=== PATIENT | male | born 1985 | race Caucasian/White ===

== ENCOUNTER 2017-03-14 15:51 | Emergency (ER) ==
[2017-03-14 16:02] VITALS: BP 121/88; TEMP 97.8; BMI 43.0
--- NOTE | 2017-03-14 16:33 | DI ---
EXAM: Right wrist three views HISTORY: Injury and pain FINDINGS/IMPRESSION: No jose m or articular abnormality. Negative exam.
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
== END 2017-03-14 16:55 | disposition home or self-care (01) ==
LOC: ED 15:51
DX: S62.396A Other fracture of fifth metacarpal bone, right hand, initial encounter for closed fracture (principal); W22.8XXA Striking against or struck by other objects, initial encounter
CPT/HCPCS: 99283